=== PATIENT | male | born 1955 | race Caucasian/White ===

== ENCOUNTER 2018-09-03 15:54 | Outpatient (RCR) | payer BC, SELFPAY ==
--- NOTE | 2018-09-03 16:35 | HP.PTEVAL ---
Patient's Visit Information TRANG HENDRICKSON is a 63 year old M referred to Physical Therapy by Trent Montano MD with a diagnosis of Left Shoulder. Date of Evaluation: 09/03/18 Physical Therapist: Emperatriz Delong DPT - Visit Plan Frequency: 1x/Week Duration: 6 Weeks Plan: HEP - Subjective Findings: Left RTC Repair at [facility] about 3 years ago. 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 Went and saw MD who gave him a cortisone injection and told you start PT for HEP. The shoulder is back to normal with the Corisone injection a week ago. Has been painfree since the injection. Pain was located along the tip of the acromion. No Pain radiating down the arm. No N/T in the arm. Described the pain as dull and achy and tight. Fully I with ADL's. 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 Right hand dominate. PMHx: patellar tendon, TKR, left shoulder repair, HTN, cholesterol. Meds: see list. Sleep: not disturbed. Did an x-ray but no MRI. Will see MD in 6 weeks if needed. - Objective Posture: FH, RS, Increased kyphosis. Gait: no deviation. Palpation: not tender to palpation. ROM: WNL in all planes. Strength: Scap: fair minus, Shoulder: 4/5 throughout Elbow: 5/5, Wrist: WNL - Goals Goal 1:: Patient will be I with HEP Goal Time Frame: 4-6 Weeks Goal 2:: Patient will report 0/10 pain Goal Time Frame: 4-6 Weeks Goal 3:: Patient will maintain proper posture t/o tx session Goal Time Frame: 4-6 Weeks - Rehabilitation Potential Physical Therapy Diagnosis: Patient presents with hypomobility- he has decrease ROM, strength and scap s/s leading to poor posture. Rehabilitation Potential: Fair - Anticipated Interventions Patient/Client Instruction: Educate patient on: Benefits of Fitness Program Therapeutic Exercise to Include: Strength training, Endurance training, Body mechanics, Postural training For the Purpose of:: To improve muscle performance and motor function Thank you for the opportunity to evaluate your patient. For Medicare and Medicare HMO plans, please review the plan of care and approve it. It will need to be FAXED BACK to us at [phone] for Medicare purposes. For Medicare only, by signing this I certify the plan of care. Please let me know if there are questions or concerns regarding this plan of care. Physician Signature: Date:
--- NOTE | 2019-01-08 08:12 | HP.PTDCNRP_ITS ---
HP - Discharge Summary (1) - Patient Information TRANG HENDRICKSON was seen in my office for initial evaluation on 09/03/18. The following Plan of Care was established for this patient: Initial Frequency: 1x/Week Initial Duration: 6 Weeks - Anticipated Interventions Patient/Client Instruction: Educate patient on: Benefits of Fitness Program Therapeutic Exercise to Include: Strength training, Endurance training, Body m echanics, Postural training For the Purpose of:: To improve muscle performance and motor function This patient was last seen in our office . Pertinent comments regarding their Physical therapy will appear below: Patient has not attended physical therapy in over 8 weeks- appropriate to be discharged and return to MD as needed. At this point I will be discontinuing this patient from physical therapy. I would be happy to see this patient again in the future if found appropriate by the physician. Thank you! BEV BaxterT
== END 2018-09-03 19:00 | disposition home or self-care (01) ==
LOC: PT 15:54
PROVIDERS: Family Provider Family Medicine; PCP Family Medicine; Referring Provider Orthopaedic Surgery; Visit Provider Orthopaedic Surgery
DX: M75.52 Bursitis of left shoulder (principal)
CPT/HCPCS: 97110; 97161

== ENCOUNTER 2018-09-22 09:56 | Observation (INO) | payer BC, SELFPAY ==
[2018-09-22] VITALS (10 sets, daily range): BP systolic 122–151; BP diastolic 72–78; PULSE 61–79; RESP 16–19; TEMP 36.6–37.1; O2SAT 95–98; BMI 35.9; BMI 36.6
--- NOTE | 2018-09-22 10:29 | EKG12_ITS ---
Test Reason : CP Blood Pressure : / mmHG Vent. Rate : 071 BPM Atrial Rate : 071 BPM P-R Int : 166 ms QRS Dur : 114 ms QT Int : 392 ms P-R-T Axes : 032 023 027 degrees QTc Int : 425 ms Normal sinus rhythm Normal ECG Confirmed by RAYA HOANG ([id number]), publishing editor ABE CASTILLO ([id number]) on 09/25/2018 11:15:08 AM Referred By: DC Confirmed By:RAYA HOANG
--- NOTE | 2018-09-22 10:30 | RAD_ITS ---
STUDY: X-RAY CHEST REASON FOR EXAM: Male, 63 years old. Chest pain. TECHNIQUE: Single AP portable view of the chest. COMPARISON: None. FINDINGS: EKG electrodes are seen. Mild elevation of the right hemidiaphragm. The lungs are clear. There is no demonstrated pleural abnormality. There is borderline cardiomegaly. Normal mediastinum and hayden. Normal visualized pulmonary arteries. Normal visualized aortic arch and descending thoracic aorta. Normal visualized thoracic spine. Normal visualized ribs, clavicles, and shoulders. There is no demonstrated abnormality of the visualized soft tissue structures of the upper abdomen. RAD/Chest 1 View (Portable) IMPRESSION: Borderline cardiomegaly. Electronically Signed: Tiago Lemon, at 10:47 EDT , Service support ,
--- NOTE | 2018-09-22 10:31 | ED.DCSUM_ITS ---
- ER Visit Summary Date of Service: 09/22/18 Chief Complaint: Chest pain History of Present Illness: The patient is a 63 M with chest pain. Patient was having some pains last night and then they recurred this morning. They last for several minutes at a time. He has had pain over his left chest but also s ometimes over his right chest. It feels like a heartburn and is associated with some shortness of breath. He thought it might be indigestion. He had a stress test a few years ago which was unremarkable. No history of coronary disease, PE, or dissection. No fevers or cough. Patient quit smoking about 6 or 7 years ago. He takes aspirin daily. History of hypertension and hyperlipidemia. Physical Examination: Afebrile and vital signs unremarkable. Alert and oriented. No acute distress. Skin normal in color without pallor or diaphoresis. Heart regular rate and rhythm. Lungs clear. Abdomen soft. Remedies nontender with no edema. Pulses strong and equal. Test Results: EKG showed sinus rhythm at a rate of 71. No sign of ischemia or infarction pattern. Laboratory studies and chest x-ray pending. Emergency Department Course and Treatment: Patient placed on a monitor. IV access obtained. EKG as above. He was treated with aspirin while awaiting results. Workup was unremarkable. Patient does have some features concerning for angina. Heart score was 4. I spoke with the hospitalist to admit for further care. Treatment Plan: Above Disposition: Admission Impression: 1. Chest pain This note was generated with BringIt dictation software. It may contain incorrect words, spelling, and punctuation that were not noted in review of the chart prior to signing ED Disposition - Plan for ED Patient: Referrals: Carter Diane MD [Primary Care Provider] -
[2018-09-22] MEDS: Aspirin 81 MG TAB.CHEW 324 MG PO (10:38)
[2018-09-22 11:02] LABS: Absolute Lymphocyte Count 1.93 X10^3/ul (0.83-4.51); Basophil# 0.04 X10^3/uL; Basophil% 0.6 % (0-1); Eosinophil# 0.21 X10^3/uL; Eosinophils% 3.1 % (0-5); Hematocrit 44.5 % (40-54); Hemoglobin 14.6 g/dl (13.0-16.5); Lymphocyte # 1.93 X10^3/ul (4.0); Lymphocyte % 28.6 % (19-41); Mean Corp Hgb Conc 32.8 g/gl (32-36); Mean Corpuscular Volume 88.5 fL (80-94); Mean Platelet Vol. 9.9 fl (6.2-12.0); Monocyte# 0.52 X10^3/uL; Monocyte% 7.7 % (0-10); Neutrophil # 4.04 X10^3/uL (2.7-7.7); Neutrophil % 59.9 % (47-70); POSITIVE COUNT NO; POSITIVE DIFFERENTIAL NO; POSITIVE MORPHOLOGY NO; Platelet Count 238 K/mm3 (150-450); RBC Distribution Width CV 13.6 % (11.6-14.6); RBC Distribution Width SD 44.1 fl (35.1-43.9); Red Blood Count 5.03 M/mm3 (4.6-6.2); White Blood Count 6.8 K/mm3 (4.4-11.0)
[2018-09-22 11:12] LABS: Anion Gap 8 (5-15); BUN 21 mg/dL (7-18); BUN/Creat Ratio 17.2 RATIO (10-20); Calcium,Total 8.7 mg/dL (8.5-10.1); Chloride 107 mmol/L (98-107); Creatinine, Serum 1.22 mg/dL (0.70-1.30); EST Glomerular Filtration Rate 64 mL/min (>60); Est Glom Filt Rate - Afr Amer 77 mL/min (>60); Estimated Creatinine Clearance 68.91 ml/min; Glucose 117 mg/dL (74-106); Potassium 3.7 mmol/L (3.5-5.1); Sodium Level 143 mmol/L (136-145)
--- NOTE | 2018-09-22 11:59 | PCM.HP.STD ---
Problem List (1) Chest pain Status: Acute (2) Hypertension Status: Chronic (3) Erectile dysfunction Status: Acute (4) GERD (gastroesophageal reflux disease) Status: Acute History of Present Illness Date of Admission: 09/22/18 Chief Complaint: Chest pain The patient is a 63 year old M [facility] as below who presents with a 2-day history of consistent chest pain, he has been having intermittent chest pain over the last several weeks. Initially he thought that it was reflux, however it has persisted and he was concerned came into the hospital. No shortness of breath or radiation of this chest pain. He has not had any upper respiratory infections. The pain will go from the right side of his chest to the left side of his chest to the center of his chest. He states that he did have a stress test a few years ago which was normal. In the ER he had a normal troponin and normal labs, as well as a normal EKG however his heart risk was moderate he was admitted for chest pain rule out. Of note he states that he exercises 3 days a week doing cardio, where his heart rate will get up to 130-140 bpm on his Fitbit. Past Medical History Past Medical History (Chronic Problems): Chronic Problems Hypertension (Chronic) Allergies No Known Allergies Allergy (Verified 09/22/18 10:39) Home Medications: Ambulatory Orders Medication Instructions Recorded Amlodipine [Norvasc] 10 mg PO DAILY 09/22/18 Aspirin [Aspirin, Baby] 81 mg PO DAILY@0800 09/22/18 Multivitamin with Minerals 1 each PO DAILY 09/22/18 [Multiple Vitamin] [place]-3 Fatty Acids/Fish Oil 1 each PO DAILY 09/22/18 [[place] 3 Fish Oil Softgel] Pantoprazole Sodium [Protonix] 40 mg PO DAILY 09/22/18 Sildenafil Citrate [Sildenafil] 60 mg PO DAILY PRN 09/22/18 Valsartan/Hydrochlorothiazide 1 each PO DAILY 09/22/18 [Valsartan-Hctz 160-12.5 mg Tab] Surgical History: arthroscopy, knee, - - Shoulder surgery Lives: Spouse/ Significant Other Smoking Status: Former smoker Tobacco Use: Cigarettes Alcohol: None Drugs: None - *Family History Maternal History Items: Cancer Paternal History Items: Cancer Review of Systems Constitutional: Denies: Chills, Fever, Weight Change HEENT: Denies: Head Aches, Sinus Congestion, Sinus Drainage Cardiovascular: Reports: Chest Pain. Denies: Palpitations Respiratory: Denies: Cough, Shortness of breath at rest, Sputum production Gastrointestinal: Denies: Abdominal Pain, Nausea, Vomiting Genitourinary: Denies: Dysuria Musculoskeletal: Denies: Joint Pain, Joint Tenderness Skin: Denies: Rash, Wounds Neurological: Denies: Numbness, Tingling, Focal weakness Psychiatric: Denies: Anxiety, Depression, Homicidal Ideations, Suicidal Ideations Hematologic/ Lymphatic: Denies: Easy Bruising, Easy Bleeding VTE Information - Inpt Only VTE Present on Admission: No Patient Problems: Active and Suspected Problems Chest pain (Acute) Erectile dysfunction (Acute) GERD (gastroesophageal reflux disease) (Acute) - Physical Exam General: Alert, Oriented x3, Cooperative, No apparent distress HEENT: Atraumatic, PERRLA, EOMI, Normocephalic Oral: Moist Mucosa Neck: Supple, No JVD, Trachea Midline Lungs: Clear to auscultation, Normal air movement, No rhonchi, No wheeze, No rales Cardiovascular: Regular rate, Regular Rhythm, Normal S1, Normal S2, No murmurs Abdomen: Soft, Non Tender, Non-Distended, No Hepato-splenomegaly, Obese Extremities: No edema, Capillary Refill Less than 3 Seconds Skin: No rashes, No breakdown Neurological: Neuro grossly intact, Sensory exam intact to light touch and pain Psych/Mental Status: Normal Affect, Appropriate Vital Signs Temp Pulse Resp BP Pulse Ox 98.0 F 75 16 122/73 H 98 09/22/18 09:57 09/22/18 11:28 09/22/18 11:28 09/22/18 11:28 09/22/18 11:28 Oxygen Flow Rate (L/min) 2 Oxygen Delivery Method Nasal Cannula Weight: 265 lb Body Mass Index (BMI) 35.9 Laboratory Tests Past 24 Hrs 09/22/18 09/22/18 10:09 10:09 WBC 6.8 RBC 5.03 Hgb 14.6 Hct 44.5 MCV 88.5 MCH 29.0 MCHC 32.8 RDW 13.6 RDW Differential 44.1 H Plt Count 238 MPV 9.9 Immature Gran % (Auto) 0.100 Neut % (Auto) 59.9 Lymph % (Auto) 28.6 [place] % (Auto) 7.7 Eos % (Auto) 3.1 Baso % (Auto) 0.6 Absolute Neuts (auto) 4.0 Absolute Lymphs (auto) 1.93 Total Counted Not Reportable Sodium 143 Potassium 3.7 Chloride 107 Carbon Dioxide 28.0 Anion Gap 8 BUN 21 H Creatinine 1.22 Estim Creat Clear Calc 68.91 Est GFR (MDRD) Af Amer 77 Est GFR (MDRD) Non-Af 64 BUN/Creatinine Ratio 17.2 Glucose 117 H Calcium 8.7 Troponin I < 0.015 Assessment/Plan All Active Problems Chest pain (Acute) Erectile dysfunction (Acute) GERD (gastroesophageal reflux disease) (Acute) 1. Chest pain/HTN -Currently presenting with a moderate heart score -We will trend troponins -EKG normal -Received aspirin in the ER, will continue with 81 daily -Exercise stress in the morning -We will continue with his Norvasc, and his valsartan/hydrochlorothiazide 2. Erectile dysfunction -Will hold Cialis while in the hospital 3. GERD -Stable -Continue with PPI DVT: Lovenox Code Visit OBSV E&M: 53636 Initial observation care L2
--- NOTE | 2018-09-22 12:46 | EKG12_ITS ---
Test Reason : AM Blood Pressure : / mmHG Vent. Rate : 063 BPM Atrial Rate : 063 BPM P-R Int : 178 ms QRS Dur : 110 ms QT Int : 426 ms P-R-T Axes : 039 037 044 degrees QTc Int : 435 ms Normal sinus rhythm Incomplete right bundle branch block Borderline ECG When compared with ECG of 22-SEP-2018 09:59, MANUAL COMPARISON REQUIRED, DATA IS UNCONFIRMED Confirmed by KENAN PACHECO, BEAU ([id number]), communications editor ABE CASTILLO ([id number]) on 09/28/2018 1:20:03 PM Referred By: FAUSTINO Confirmed By:BEAU GRAYSON MD
[2018-09-22] MEDS: Zolpidem Tartrate 5 MG Tablet PO (23:00)
[2018-09-23 03:08] VITALS: PULSE 58
[2018-09-23 04:08] VITALS: BP 124/64; PULSE 63; RESP 18; TEMP 36.7; O2SAT 95
[2018-09-23 05:35] LABS: Absolute Lymphocyte Count 1.95 X10^3/ul (0.83-4.51); Absolute Neutrophil Count 2.9 X10^3/uL (2.0-7.7); Basophil# 0.03 X10^3/uL; Basophil% 0.5 % (0-1); Eosinophil# 0.22 X10^3/uL; Eosinophils% 3.7 % (0-5); Hematocrit 42.7 % (40-54); Hemoglobin 14.1 g/dl (13.0-16.5); Lymphocyte # 1.95 X10^3/ul (4.0); Lymphocyte % 33.2 % (19-41); Mean Corpuscular Hgb 29.1 pg (27.0-32.0); Mean Corpuscular Volume 88.2 fL (80-94); Mean Platelet Vol. 9.9 fl (6.2-12.0); Monocyte# 0.74 X10^3/uL; Monocyte% 12.6 % (0-10); Neutrophil # 2.93 X10^3/uL (2.7-7.7); Neutrophil % 49.8 % (47-70); Platelet Count 216 K/mm3 (150-450); RBC Distribution Width CV 13.5 % (11.6-14.6); RBC Distribution Width SD 43.4 fl (35.1-43.9); Red Blood Count 4.84 M/mm3 (4.6-6.2); White Blood Count 5.9 K/mm3 (4.4-11.0)
[2018-09-23 05:37] LABS: POSITIVE COUNT NO; POSITIVE DIFFERENTIAL NO; POSITIVE MORPHOLOGY NO
[2018-09-23 05:40] LABS: International Normalized Ratio 1.1; Prothrombin Time (Protime)PT. 14.2 SECONDS (11.7-14.9)
[2018-09-23 05:41] LABS: Partial Thromboplast Time 29.7 Seconds (24.1-36.2)
[2018-09-23 05:52] LABS: Anion Gap 8 (5-15); BUN 19 mg/dL (7-18); BUN/Creat Ratio 16.7 RATIO (10-20); Calcium,Total 8.6 mg/dL (8.5-10.1); Chloride 107 mmol/L (98-107); Cholesterol 157 mg/dL (200); Creatinine, Serum 1.14 mg/dL (0.70-1.30); EST Glomerular Filtration Rate 69 mL/min (>60); Est Glom Filt Rate - Afr Amer 84 mL/min (>60); Estimated Creatinine Clearance 73.74 ml/min; Glucose 103 mg/dL (74-106); High Density Lipoprotein 42 mg/dL; Potassium 3.7 mmol/L (3.5-5.1); Sodium Level 143 mmol/L (136-145); Triglycerides 169 mg/dL; Very Low Density Lipoprotein 34 mg/dL (5-40)
--- NOTE | 2018-09-23 05:55 | EKG12_ITS ---
Test Reason : CP REPEAT Blood Pressure : / mmHG Vent. Rate : 060 BPM Atrial Rate : 060 BPM P-R Int : 182 ms QRS Dur : 118 ms QT Int : 434 ms P-R-T Axes : 030 030 035 degrees QTc Int : 434 ms Normal sinus rhythm Non-specific intra-ventricular conduction delay Borderline ECG No previous ECGs available Confirmed by KENAN PACHECO, BEAU ([id number]), dictionary editor ABE CASTILLO ([id number]) on 09/28/2018 1:23:03 PM Referred By: LISSETTE Confirmed By:BEAU GRAYSON MD
[2018-09-23 06:10] VITALS: BP 152/71; PULSE 66; RESP 18; TEMP 36.6; O2SAT 98
[2018-09-23] MEDS: Losartan Potassium 50 MG Tablet PO (06:10)
[2018-09-23] MEDS: Pantoprazole Sodium 40 MG Tablet PO (06:10)
[2018-09-23] MEDS: Aspirin 81 MG TAB.CHEW PO (06:10)
[2018-09-23 08:19] VITALS: PULSE 92
--- NOTE | 2018-09-23 09:09 | STRESSREP_ITS ---
Stress Test Report Exercise myocardial perfusion stress test. 63-year-old male with a history of chest pain. Stress protocol: Resting EKG demonstrates normal sinus rhythm with a rate of 62 bpm normal intervals are noted resting blood pressure 130/84 mmHg. The patient exercised according to regular Jakob protocol for total duration of 7 minutes and 15 sec onds. The maximum heart rate was 169 bpm which was 106% of maximum predicted heart rate the maximum workload was 8.9 metabolic equivalents. The patient maintained sinus rhythm throughout the recording. At rest there were no ST or T wave changes noted suggest ischemia peak exercise upsloping ST changes were noted with no meet the criteria for ischemia. The resting blood pressure 140/82 mmHg with a peak blood pressure 198/92 mmHg. Rate pressure product was 29,800. Myocardial perfusion protocol. 14.6 mCi of technetium 99m sestamibi was injected at rest. The patient exercised according to regular Jakob protocol for 7 minutes and 15 seconds at peak exercise 44.7 mCi of technetium 99m sestamibi was injected stress images were obtained stress and rest images were reconstructed and compared in the short axis vertical long horizontal long axis. Gated images were also obtained per Perfusion SPECT analysis: Review of the stress images demonstrate normal uptake of tracer noted in all areas of myocardium. The resting images similarly demonstrate normal uptake of tracer noted in all areas of myocardium. No evidence of reversibility are noted suggest ischemia. Gated SPECT analysis: The gated ejection fraction is noted to be 75%. Conclusion: Normal exercise myocardial perfusion stress test at a high workload. Preserved ejection fraction.
--- NOTE | 2018-09-23 09:39 | DCINST_ITS ---
- Discharge Diagnoses Current Active Problems: Current Active and Chronic Problems Chest pain (Acute) Hypertension (Chronic) Erectile dysfunction (Acute) GERD (gastroesophageal reflux disease) (Acute) You will use the following diet at home:: Cardiac Your food should be the consistency of: Regular Your liquids should be the consistency of: Regular/Thin Discharge Activity: Return to Normal Activity Call your doctor if you observe: Fever of 101 or Higher, Shortness of breath, Dizziness, Fainting spells, Swelling in the ankles, Chest pain, Increased palpitations (irregular heartbeat) Allergies/Adverse Reactions: Allergies No Known Allergies Allergy (Verified 09/22/18 10:39) Medications to take at Discharge Amlodipine [Norvasc] 10 mg PO DAILY 09/22/18 Aspirin [Aspirin, Baby] 81 mg PO DAILY@0800 09/22/18 Multivitamin with Minerals [Multiple Vitamin] 1 each PO DAILY 09/22/18 [place]-3 Fatty Acids/Fish Oil [[place] 3 Fish Oil Softgel] 1 each PO DAILY 09/22/18 Pantoprazole Sodium [Protonix] 40 mg PO DAILY 09/22/18 Sildenafil Citrate [Sildenafil] 60 mg PO DAILY PRN 09/22/18 Valsartan/Hydrochlorothiazide [Valsartan-Hctz 160-12.5 mg Tab] 1 each PO DAILY 09/22/18 Primary Care Physician: Carter Diane MD [Primary Care Provider] - Please follow up with your Primary Care Physician in: 3-5 days Test Results: Test results from this visit will be discussed in further detail at your follow- up appointment, if applicable.
[2018-09-23] MEDS: amLODIPine 10 MG Tablet PO (10:18)
--- NOTE | 2018-09-23 11:29 | PCM.DC.SUM ---
Discharge Date and Diagnosis Date of Admission: 09/22/18 Date of Discharge: 09/23/18 - Secondary Discharge Diagnosis Chronic Problems Hypertension (Chronic) Hospital Course and Treatment Imaging Results: 09/23/18 05:55 Nuclear Stress Test - Treadmil [NM] AM (NON MEDS) Consults: Cardiology Procedures: Nuclear stress test - Gated SPECT analysis: The gated ejection fraction is noted to be 75%. Conclusion: Normal exercise myocardial perfusion stress test at a high workload. Preserved ejection fraction. Summary of Care Provided: Per HPI: The patient is a 63 year old M H as below who presents with a 2-day history of consistent chest pain, he has been having intermittent chest pain over the last several weeks. Initially he thought that it was reflux, however it has persisted and he was concerned came into the hospital. No shortness of breath or radiation of this chest pain. He has not had any upper respiratory infections. The pain will go from the right side of his chest to the left side of his chest to the center of his chest. He states that he did have a stress test a few years ago which was normal. In the ER he had a normal troponin and normal labs, as well as a normal EKG however his heart risk was moderate he was admitted for chest pain rule out. Of note he states that he exercises 3 days a week doing cardio, where his heart rate will get up to 130-140 bpm on his Fitbit. Hospital Course: 1. Chest pain/RJV-52-hgrr-old male presenting with chest pain intermittently over the last several weeks, then it became consistent over the last 2 days. Troponins were negative and he had an exercise stress test this morning which was normal. He will have further cardiac testing possibly a calcium score as well as a perfusion study as an outpatient. I discussed with him about weight loss and dietary modifications to help achieve weight loss. He does exercise 3-4 days a week which I recommend he continue. 2. His other medical diagnoses were evaluated and his home medications were continued where appropriate Objective: General: Alert, Oriented x3, Cooperative, No apparent distress HEENT: Atraumatic, PERRLA, EOMI, Normocephalic Oral: Moist Mucosa Neck: Supple, No JVD, Trachea Midline Lungs: Clear to auscultation, Normal air movement, No rhonchi, No wheeze, No rales Cardiovascular: Regular rate, Regular Rhythm, Normal S1, Normal S2, No murmurs Abdomen: Soft, Non Tender, Non-Distended, No Hepato-splenomegaly, Obese Extremities: No edema, Capillary Refill Less than 3 Seconds Skin: No rashes, No breakdown Neurological: Neuro grossly intact, Sensory exam intact to light touch and pain Psych/Mental Status: Normal Affect, Appropriate - Physical Exam Vital Signs Temp Pulse Resp BP Pulse Ox 97.9 F 92 18 152/71 H 98 09/23/18 06:10 09/23/18 08:19 09/23/18 06:10 09/23/18 06:10 09/23/18 06:10 Oxygen Flow Rate (L/min) 2 Oxygen Delivery Method Room Air Weight: 270 lb 4.587 oz Body Mass Index (BMI) 36.6 Intake and Output for Last 24 Hours 09/21/18 09/22/18 09/23/18 23:59 23:59 23:59 Intake Total 480 / 480 240 / 240 Balance 480 / 480 240 / 240 Laboratory Tests Past 24 Hrs 09/22/18 09/22/18 09/23/18 13:00 16:34 04:44 WBC RBC Hgb Hct MCV MCH MCHC RDW RDW Differential Plt Count MPV Immature Gran % (Auto) Neut % (Auto) Lymph % (Auto) [place] % (Auto) Eos % (Auto) Baso % (Auto) Absolute Neuts (auto) Absolute Lymphs (auto) Total Counted PT INR APTT Sodium 143 Potassium 3.7 Chloride 107 Carbon Dioxide 28.0 Anion Gap 8 BUN 19 H Creatinine 1.14 Estim Creat Clear Calc 73.74 Est GFR (MDRD) Af Amer 84 Est GFR (MDRD) Non-Af 69 BUN/Creatinine Ratio 16.7 Glucose 103 Calcium 8.6 Troponin I < 0.015 < 0.015 Triglycerides 169 Cholesterol 157 LDL Cholesterol 81 VLDL Cholesterol 34 HDL Cholesterol 42 09/23/18 09/23/18 04:44 04:44 WBC 5.9 RBC 4.84 Hgb 14.1 Hct 42.7 MCV 88.2 MCH 29.1 MCHC 33.0 RDW 13.5 RDW Differential 43.4 Plt Count 216 MPV 9.9 Immature Gran % (Auto) 0.200 Neut % (Auto) 49.8 Lymph % (Auto) 33.2 [place] % (Auto) 12.6 H Eos % (Auto) 3.7 Baso % (Auto) 0.5 Absolute Neuts (auto) 2.9 Absolute Lymphs (auto) 1.95 Total Counted Not Reportable PT 14.2 INR 1.1 APTT 29.7 Sodium Potassium Chloride Carbon Dioxide Anion Gap BUN Creatinine Estim Creat Clear Calc Est GFR (MDRD) Af Amer Est GFR (MDRD) Non-Af BUN/Creatinine Ratio Glucose Calcium Troponin I Triglycerides Cholesterol LDL Cholesterol VLDL Cholesterol HDL Cholesterol Discharge Activity: Return to Normal Activity Call your doctor if you observe: Fever of 101 or Higher, Shortness of breath, Dizziness, Fainting spells, Swelling in the ankles, Chest pain, Increased palpitations (irregular heartbeat) Home Medications: Medications to take at Discharge Amlodipine [Norvasc] 10 mg PO DAILY 09/22/18 Aspirin [Aspirin, Baby] 81 mg PO DAILY@0800 09/22/18 Multivitamin with Minerals [Multiple Vitamin] 1 each PO DAILY 09/22/18 [place]-3 Fatty Acids/Fish Oil [[place] 3 Fish Oil Softgel] 1 each PO DAILY 09/22/18 Pantoprazole Sodium [Protonix] 40 mg PO DAILY 09/22/18 Sildenafil Citrate [Sildenafil] 60 mg PO DAILY PRN 09/22/18 Valsartan/Hydrochlorothiazide [Valsartan-Hctz 160-12.5 mg Tab] 1 each PO DAILY 09/22/18 Primary Care Physician: Carter Diane MD [Primary Care Provider] - Please follow up with your Primary Care Physician in: 3-5 days Disposition: Home Minutes spent on discharge:: 35 Patient Condition:: Good Medical Necessity - Tobacco Use Smoking Status: Former smoker Tobacco Use: Cigarettes Meaningful Use Info Meaningful Use Diagnoses (Choose all that apply): None applicable Code Visit OBSV E&M: 74017 Observation care discharge
--- NOTE | 2018-09-23 11:32 | DS.PCM_ITS ---
Discharge Date and Diagnosis Date of Admission: 09/22/18 Date of Discharge: 09/23/18 - Secondary Discharge Diagnosis Chronic Problems Hypertension (Chronic) Hospital Course and Treatment Imaging Results: 09/23/18 05:55 Nuclear Stress Test - Treadmil [NM] AM (NON MEDS) Consults: Cardiology Procedures: Nuclear stress test - Gated SPECT analysis: The gated ejection fraction is noted to be 75%. Conclusion: Normal exercise myocardial perfusion stress test at a high workload. Preserved ejection fraction. Summary of Care Provided: Per HPI: The patient is a 63 year old M H as below who presents with a 2-day history of consistent chest pain, he has been having intermittent chest pain over the last several weeks. Initially he thought that it was reflux, however it has persisted and he was concerned came into the hospital. No shortness of breath or radiation of this chest pain. He has not had any upper respiratory infections. The pain will go from the right side of his chest to the left side of his chest to the center of his chest. He states that he did have a stress test a few years ago which was normal. In the ER he had a normal troponin and normal labs, as well as a normal EKG however his heart risk was moderate he was admitted for chest pain rule out. Of note he states that he exercises 3 days a week doing cardio, where his heart rate will get up to 130-140 bpm on his Fitbit. Hospital Course: 1. Chest pain/HAA-89-yuxu-old male presenting with chest pain intermittently over the last several weeks, then it became consistent over the last 2 days. Troponins were negative and he had an exercise stress test this morning which was normal. He will have further cardiac testing possibly a calcium score as well as a perfusion study as an outpatient. I discussed with him about weight loss and dietary modifications to help achieve weight loss. He does exercise 3- 4 days a week which I recommend he continue. 2. His other medical diagnoses were evaluated and his home medications were continued where appropriate Objective: General: Alert, Oriented x3, Cooperative, No apparent distress HEENT: Atraumatic, PERRLA, EOMI, Normocephalic Oral: Moist Mucosa Neck: Supple, No JVD, Trachea Midline Lungs: Clear to auscultation, Normal air movement, No rhonchi, No wheeze, No rales Cardiovascular: Regular rate, Regular Rhythm, Normal S1, Normal S2, No murmurs Abdomen: Soft, Non Tender, Non-Distended, No Hepato-splenomegaly, Obese Extremities: No edema, Capillary Refill Less than 3 Seconds Skin: No rashes, No breakdown Neurological: Neuro grossly intact, Sensory exam intact to light touch and pain Psych/Mental Status: Normal Affect, Appropriate - Physical Exam Vital Signs Temp Pulse Resp BP Pulse Ox 97.9 F 92 18 152/71 H 98 09/23/18 06:10 09/23/18 08:19 09/23/18 06:10 09/23/18 06:10 09/23/18 06:10 Oxygen Flow Rate (L/min) 2 Oxygen Delivery Method Room Air Weight: 270 lb 4.587 oz Body Mass Index (BMI) 36.6 Intake and Output for Last 24 Hours 09/21/18 09/22/18 09/23/18 23:59 23:59 23:59 Intake Total 480 / 480 240 / 240 Balance 480 / 480 240 / 240 Laboratory Tests Past 24 Hrs 09/22/18 09/22/18 09/23/18 13:00 16:34 04:44 WBC RBC Hgb Hct MCV MCH MCHC RDW RDW Differential Plt Count MPV Immature Gran % (Auto) Neut % (Auto) Lymph % (Auto) [place] % (Auto) Eos % (Auto) Baso % (Auto) Absolute Neuts (auto) Absolute Lymphs (auto) Total Counted PT INR APTT Sodium 143 Potassium 3.7 Chloride 107 Carbon Dioxide 28.0 Anion Gap 8 BUN 19 H Creatinine 1.14 Estim Creat Clear Calc 73.74 Est GFR (MDRD) Af Amer 84 Est GFR (MDRD) Non-Af 69 BUN/Creatinine Ratio 16.7 Glucose 103 Calcium 8.6 Troponin I < 0.015 < 0.015 Triglycerides 169 Cholesterol 157 LDL Cholesterol 81 VLDL Cholesterol 34 HDL Cholesterol 42 09/23/18 09/23/18 04:44 04:44 WBC 5.9 RBC 4.84 Hgb 14.1 Hct 42.7 MCV 88.2 MCH 29.1 MCHC 33.0 RDW 13.5 RDW Differential 43.4 Plt Count 216 MPV 9.9 Immature Gran % (Auto) 0.200 Neut % (Auto) 49.8 Lymph % (Auto) 33.2 [place] % (Auto) 12.6 H Eos % (Auto) 3.7 Baso % (Auto) 0.5 Absolute Neuts (auto) 2.9 Absolute Lymphs (auto) 1.95 Total Counted Not Reportable PT 14.2 INR 1.1 APTT 29.7 Sodium Potassium Chloride Carbon Dioxide Anion Gap BUN Creatinine Estim Creat Clear Calc Est GFR (MDRD) Af Amer Est GFR (MDRD) Non-Af BUN/Creatinine Ratio Glucose Calcium Troponin I Triglycerides Cholesterol LDL Cholesterol VLDL Cholesterol HDL Cholesterol Discharge Activity: Return to Normal Activity Call your doctor if you observe: Fever of 101 or Higher, Shortness of breath, Dizziness, Fainting spells, Swelling in the ankles, Chest pain, Increased palpitations (irregular heartbeat) Home Medications: Medications to take at Discharge Amlodipine [Norvasc] 10 mg PO DAILY 09/22/18 Aspirin [Aspirin, Baby] 81 mg PO DAILY@0800 09/22/18 Multivitamin with Minerals [Multiple Vitamin] 1 each PO DAILY 09/22/18 Colbert-3 Fatty Acids/Fish Oil [Colbert 3 Fish Oil Softgel] 1 each PO DAILY 09/22/18 Pantoprazole Sodium [Protonix] 40 mg PO DAILY 09/22/18 Sildenafil Citrate [Sildenafil] 60 mg PO DAILY PRN 09/22/18 Valsartan/Hydrochlorothiazide [Valsartan-Hctz 160-12.5 mg Tab] 1 each PO DAILY 09/22/18 Primary Care Physician: Carter Diane MD [Primary Care Provider] - Please follow up with your Primary Care Physician in: 3-5 days Disposition: Home Minutes spent on discharge:: 35 Patient Condition:: Good Medical Necessity - Tobacco Use Smoking Status: Former smoker Tobacco Use: Cigarettes Meaningful Use Info Meaningful Use Diagnoses (Choose all that apply): None applicable Code Visit OBSV E&M: 40094 Observation care discharge
== END 2018-09-23 09:38 | disposition home or self-care (01) ==
LOC: ED 10:34 → PCU 12:14
PROVIDERS: Admitting Provider Family Medicine; Emergency Provider Emergency Medicine; Family Provider Family Medicine; PCP Family Medicine; Visit Provider Family Medicine
DX: R07.89 Other chest pain (principal); R06.02 Shortness of breath; I10 Essential (primary) hypertension; E78.5 Hyperlipidemia, unspecified; K21.9 Gastro-esophageal reflux disease without esophagitis; Z79.899 Other long term (current) drug therapy; Z79.82 Long term (current) use of aspirin; Z87.891 Personal history of nicotine dependence
CPT/HCPCS: 36415; 71045; 78452; 80048; 80061; 84484; 85025; 85610; 85730; 93005; 93017; 99218; 99285; A9500; A4216; G0378

== ENCOUNTER → 2018-10-14 08:05 | Outpatient (CLI) | payer BC, SELFPAY ==
[2018-09-22 12:52] VITALS: BMI 36.6
--- NOTE | 2018-10-14 08:10 | RAD_ITS ---
CLINICAL HISTORY: Male, 63 years old. Chest pain, EKG and stress test normal. Gassy and burping times several months. PROCEDURE: Fluoroscopically guided, air-contrast upper GI. FLUOROSCOPY TIME (if supplied): (2:06) minutes/seconds TECHNIQUE: The patient easily and readily swallowed effervescent crystals and various density barium contrast. Multiple digital spot images were obtained during the course of the real-time exam. FINDINGS: Esophageal motility appears normal. There is no esophageal stricture, web or diverticulum. The esophageal mucosal pattern appears unremarkable. Moderate reflux was observed during the course of the real-time exam to the level of the distal third of the esophagus with delayed clearing. The stomach demonstrates normal morphology, position and rotation. There is no intrinsic or extrinsic gastric mass or mass effect. The gastric mucosal pattern appears unremarkable. Contrast readily exited the gastric outlet into unremarkable appearing duodenal bulb and proximal small bowel. RAD/Upper GI Series Only IMPRESSION: Moderate free reflux to the level of the distal third of the esophagus with moderately delayed clearing. Otherwise, fluoroscopically normal-appearing esophagus, stomach, duodenal bulb and duodenal C-sweep. Electronically Signed: Raymond Crawford MD at 10:13 EDT , Service support ,
== END ==
PROVIDERS: Family Provider Family Medicine; PCP Family Medicine; Referring Provider Family Medicine; Visit Provider Family Medicine
DX: R10.13 Epigastric pain (principal); R10.11 Right upper quadrant pain
CPT/HCPCS: 74246

== ENCOUNTER 2019-07-08 16:30 | Outpatient (RCR) | payer BC, SELFPAY ==
[2018-09-22 12:52] VITALS: BMI 36.6
--- NOTE | 2019-06-08 15:24 | HP.PTEVAL ---
Patient's Visit Information TRANG HENDRICKSON is a 63 year old M referred to Physical Therapy by YAN GARCIA with a diagnosis of R knee revision. Date of Evaluation: 06/08/19 Physical Therapist: Immanuel Garcia, PT, ATC - Visit Plan Frequency: 2-3x /Week Duration: 4-6 Weeks Plan: R knee PROM/MOBS, stretching, strengthening, core strengthening, balance and proprio, bike, and HEP - Subjective Findings: DOS: 05/07/19. Pt reports he had a R knee revision performed at that time. Pt reports he had a R TKA performed 9 years ago. Pt reports he was having PT for patellar tendonitis when he suddenly felt his tendon tear. Pt reports scar tissue from that injury lead to him having to get this revision performed. 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 Pt reports sleep difficulty at this time. Pt reports he is back to work at this time but only half days. Occasional numbness in R LE if he sits too long. Pt is limited from a lot of activities, but mostly due to L knee pain. 2/10 pain at rest, 4/10 at worst - Pain R knee revision Pain Intensity (Out of 10): 2 Pain Intensity Range: 4 - Objective Neuro: B LE sensation WNL to light touch. B achilles reflex= 2/3. Girth at joint line: L knee 40 cm, R knee 43 cm. Observation: Incision healed. Moderate swelling noted. 2+ pitting edema in LE. No obvious signs of infection. ROM: R knee 0-2-120, L knee 0-13-105 degrees. MMT: B LE's 4/5 throughout - Goals Goal 1:: Decrease R knee pain x 50% to aid with sleep Goal Time Frame: 4-6 Weeks Goal 2:: Increase R knee ROM x 20 degrees to aid with stair negotiation Goal 3:: Increase R knee strength x 1 grade to aid with RTW Goal Time Frame: 4-6 Weeks Goal 4:: I with HEP Goal Time Frame: 4-6 Weeks - Rehabilitation Potential Physical Therapy Diagnosis: R knee pain, weakness, and limited ROM secondary to R knee revision Rehabilitation Potential: Good - Anticipated Interventions Patient/Client Instruction: Educate patient on: Condition, Plan of Care For the Purpose of:: To improve self management Therapeutic Exercise to Include: Strength training, Endurance training, Balance training, Flexibilty training, Passive ROM, Active ROM, Dynamic Lumbar Stabilization For the Purpose of:: To decrease pain, To increase ROM, To improve muscle performance and motor function Cryotherapy (ice pack, ice massage): Yes For the Purpose of:: To decrease pain Thank you for the opportunity to evaluate your patient. For Medicare and Medicare HMO plans, please review the plan of care and approve it. It will need to be FAXED BACK to us at [phone] for Medicare purposes. For Medicare only, by signing this I certify the plan of care. Please let me know if there are questions or concerns regarding this plan of care. Physician Signature: Date:
--- NOTE | 2019-07-08 17:01 | HP.PTDCSUM ---
HP - PT D/C Summary It has been my pleasure to treat TRANG HENDRICKSON under orders from YAN GARCIA, for the diagnosis of R knee revision for a total of 10 visit(s). Discharge Date: Please see the following information for a summary of their discharge status. - Subjective Subjective: Pt reports mild pain this date - Pain R knee revision Pain Intensity (Out of 10): 1 - Overall Improvement % Improvement: 70 - Objective Objective/Function: R knee ROM: 0-125 degrees. R knee MMT: 5/ throughout. Pain 07/02. I with HEP. Rx goals achieved - Goals Goal 1:: Decrease R knee pain x 50% to aid with sleep Goal 2:: Increase R knee ROM x 20 degrees to aid with stair negotiation Goal 3:: Increase R knee strength x 1 grade to aid with RTW Goal 4:: I with HEP - Plan Plan: Discharge - D/C Information If there are questions or concerns regarding this patient's physical therapy, please feel free to call me at [phone]. Thank you for the referral of this patient. Sincerely, Immanuel Garcia, PT, ATC
== END 2019-07-08 19:00 | disposition home or self-care (01) ==
LOC: PT 16:30
PROVIDERS: Family Provider Family Medicine; PCP Family Medicine
DX: M17.12 Unilateral primary osteoarthritis, left knee (principal); Z96.651 Presence of right artificial knee joint
CPT/HCPCS: 97110; 97161; 97164

== ENCOUNTER 2019-09-28 16:00 | Outpatient (RCR) | payer BC, SELFPAY ==
[2018-09-22 12:52] VITALS: BMI 36.6
--- NOTE | 2019-08-04 12:33 | HP.PTEVAL_ITS ---
Patient's Visit Information TRANG HENDRICKSON is a 64 year old M referred to Physical Therapy by YAN GARCIA with a diagnosis of L TKA. Date of Evaluation: 08/04/19 Physical Therapist: Immanuel Garcia, PT, ATC - Visit Plan Frequency: 2-3x /Week Duration: 4-6 Weeks Plan: L knee PROM/mobs, B LE strengthening, balance and proprio, core strengthening, nustep, and HEP - Subjective Findings: DOS: 07/14/18. Pt had a L TKA performed. Pt reports he had a chronic Hx of L knee pain prior to the surgery. Pt reports he is glad to have had the surgery at this time. Pt reports he had inhome PT for 3 weeks and is doing really well at this time. Sleep difficulty if he is not taking pain meds. Minor numbness on lateral L knee, no other LE tingling or numbness. 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 Pt has stairs at home and notes he can negotiate them one step at a time. Notes R TKA 9 years ago and in April of last yeat, had to have a revision performed which is still weak at this time. 2/10 pain at rest, 6/10 pain at worst - Pain L TKA Pain Intensity (Out of 10): 2 Pain Intensity Range: 6 - Objective Neuro: B LE sensation is WNL to light touch. B achilles reflex= 2/3. ROM: R knee 0-8-120, L knee 0-15-108. Girth at joint line: B knees 42 cm. MMT: R knee is 4+/5 throughout. L knee 4-/5 and painful. Observation: ncision mostly healed. No signs of infection. - Goals Goal 1:: Increase L knee ROM x 20 degrees to aid with restoring a more normalized gait pattern Goal Time Frame: 4-6 Weeks Goal 2:: Increase L knee strenght x 1 grade to aid with stair negotiation Goal Time Frame: 4-6 Weeks Goal 3:: Decrease L pain x 50% to aid with sleep Goal Time Frame: 4-6 Weeks Goal 4:: I with HEP Goal Time Frame: 4-6 Weeks - Rehabilitation Potential Physical Therapy Diagnosis: L knee pain, weakness, and limited ROM secondary to L TKA Rehabilitation Potential: Good - Anticipated Interventions Patient/Client Instruction: Educate patient on: Condition, Plan of Care For the Purpose of:: To improve self management Therapeutic Exercise to Include: Strength training, Endurance training, Balance training, Flexibilty training, Gait and locomotor training, Passive ROM, Active ROM, Dynamic Lumbar Stabilization For the Purpose of:: To decrease pain, To increase ROM, To improve muscle performance and motor function Cryotherapy (ice pack, ice massage): Yes For the Purpose of:: To decrease pain Thank you for the opportunity to evaluate your patient. For Medicare and Medicare HMO plans, please review the plan of care and approve it. It will need to be FAXED BACK to us at [phone] for Medicare purposes. For Medicare only, by signing this I certify the plan of care. Please let me know if there are questions or concerns regarding this plan of care. Physician Signature: __Date:
--- NOTE | 2019-09-28 17:04 | HP.PTDCSUM ---
It has been my pleasure to treat TRANG HENDRICKSON referred by YAN GARCIA, with the diagnosis of L TKA for a total of 19 visit(s). Discharge Date: Please see the following information for a summary of their discharge status. Subjective: I am sore this date L TKA Pain Intensity (Out of 10): 1 % Improvement: 85 Objective/Function: L knee pain 07/02 this . L knee MMT: flex= 4/5, ext= 5/5. L knee ROM 0-125 degrees. I with HEP Goal 1:: Increase L knee ROM x 20 degrees to aid with restoring a more normalized gait pattern Goal Progress: Goal Met Goal 2:: Increase L knee strenght x 1 grade to aid with stair negotiation Goal Progress: Goal Met Goal 3:: Decrease L pain x 50% to aid with sleep Goal Progress: Goal Met Goal 4:: I with HEP Goal Progress: Goal Met Plan: Discharge If there are questions or concerns regarding this patient's physical therapy, please feel free to call me at [phone]. Thank you for the referral of this patient. Sincerely, Immanuel Garcia, PT, ATC
== END 2019-09-28 19:00 | disposition home or self-care (01) ==
LOC: PT 16:00
PROVIDERS: PCP Family Medicine
DX: M25.562 Pain in left knee (principal); G89.18 Other acute postprocedural pain; Z96.653 Presence of artificial knee joint, bilateral
CPT/HCPCS: 97014; 97110; 97140; 97161; 97164; G0283

== ENCOUNTER → 2020-09-18 06:32 | Outpatient (CLI) | payer OTHER, SELFPAY ==
[2018-09-22 12:52] VITALS: BMI 36.6
--- NOTE | 2020-09-18 06:39 | MRI_ITS ---
STUDY: MRI ABDOMEN WITH AND WITHOUT CONTRAST REASON FOR EXAM: Male, 65 years old. FAMILY HX PANCREATIC CA TECHNIQUE: Standardized fat and water weighted pulse sequences were obtained in all 3 orthogonal planes post contrast administration. 24ML IV DOTAREM was administered for the contrast portion of the examination. COMPARISON: None. FINDINGS: The visualized lung bases are unremarkable. The visualized portions of the heart are within normal limits. Normal liver. Normal gallbladder and extrahepatic biliary system. Normal spleen. Normal pancreas. Normal bilateral adrenal glands. Normal right kidney. Normal left kidney. Normal visualized stomach. Normal small intestine. Normal colon. The appendix is visualized and appears normal. Normal abdominal aorta. Normal inferior vena cava. Normal retroperitoneum. Normal abdominal wall. Normal osseous structures. MRI/MRI Abd WITH and W/O Contrast IMPRESSION: Normal unenhanced and enhanced MRI of the abdomen. Electronically Signed: Kodi Nguyen DO at 4:28 EDT Tel , Service support ,
[2020-09-18 06:55] LABS: CREATININE FINGERSTICK 1.4 mg/dL (0.70-1.30)
== END ==
PROVIDERS: PCP Family Medicine; Referring Provider Family Medicine; Visit Provider Family Medicine
DX: Z80.0 Family history of malignant neoplasm of digestive organs (principal)
CPT/HCPCS: 74183; A9575; A4216

== ENCOUNTER 2021-01-17 15:30 | Outpatient (RCR) | payer OTHER, SELFPAY ==
[2018-09-22 12:52] VITALS: BMI 36.6
--- NOTE | 2020-10-31 17:15 | HP.PTEVAL ---
Patient's Visit Information TRANG HENDRICKSON is a 65 year old M referred to Physical Therapy by YAN GARCIA with a diagnosis of DDD, s/p TKA. Date of Evaluation: 10/31/20 Physical Therapist: Khanh Mcwilliams, BEVT, OCS, CSCS - Visit Plan Frequency: 2x /Week Duration: 4-6 Weeks Plan: 2x/week for 4 weeks to start in water for instructiona dn progression to I as member with HS and quad strentches, LB ROM, core adn quad and LE and postural strength. May need to progress out to gym for instruct in quad strength to knees to add to gym program once done in water. - Subjective L TKA and R TKA revision over a year ago. Rehabbed at [facility]. Back hurts and knees hurt up and down steps. Doctor suggested aqua therapy for LB. LB stretches he is doing on his own. Describes pelvic tilt, leg stretches and bridging. Was working out in gym and was doing HSC, leg press, PKF, back extension, ab curls machine, glut ham. Bike 20-30 minutes low resistance. [place] great afterwards adn the next day could hurt in LB. Back pain is up to 3/10 central back pain and into hips. Intermittent but mostly there. Worse with lifting adn yard work. Sees chiropractic weekly and DTM monthly. No diagnostics. B knees hurt on steps or standing too long can get uncomfortable. Sleep is not interrupted. Activity at home pretty normal but slower. Basic ADLs are getting done. Hobbies: golf, has been out and it hurt a month ago but not last week. - Pain LBP Pain Intensity (Out of 10): 2 Pain Intensity Range: 0, 3 Knees Pain Intensity (Out of 10): 0 Pain Intensity Range: 0, 5 Comment: 5 on steps, needs to stretch - Objective [place] with wide ROSALIO slightly adn I with gait and transfers without UE. Steps are reciprocal without EU but stiff and weak in quads. LB AROM ext and flexion mod limited adn painful centrally. SB min limited adn no pain. Tender to palpation mildly in lumbar paraspinals. reflexes 2/3 patella and aachilles. Sensation wNL to gross light touch in LE. HS adn quads max tight B. AROM knees 0-120 R and 0-112 L. 4/5 quad strengtha dn 4+ HS. hip adn ankle aROM WFL, strength 4+ at ankles adn 4 hip abd and ext and 4+ flexion. - slump test, - SLR. - Goals Goal 1:: golf consistently withotu pain LB Goal Time Frame: 4-6 Weeks Goal 2:: I approp water HEP and back to gym ex without back pain. Goal Time Frame: 4-6 Weeks Goal 3:: LEFS 63/80 Goal Time Frame: 4-6 Weeks Goal 4:: Pt feel 75% better in back and knees overall Goal Time Frame: 4-6 Weeks - Rehabilitation Potential Physical Therapy Diagnosis: DDD, s/p TKA with some pain limiting progressions of mobility/ex. Rehabilitation Potential: Fair - Anticipated Interventions Patient/Client Instruction: Educate patient on: Condition, Plan of Care For the Purpose of:: To decrease pain, To increase ROM, To improve muscle performance and motor function Therapeutic Exercise to Include: Strength training, Flexibilty training, Gait and locomotor training, In an aquatic setting, Passive ROM, Active ROM For the Purpose of:: To decrease pain, To increase ROM, To improve muscle performance and motor function, To increase tolerance to activity/condition/position, To improve gait and locomotor functions Thank you for the opportunity to evaluate your patient. For Medicare and Medicare HMO plans, please review the plan of care and approve it. It will need to be FAXED BACK to us at [phone] for Medicare purposes. For Medicare only, by signing this I certify the plan of care. Please let me know if there are questions or concerns regarding this plan of care. Physician Signature: Date:
--- NOTE | 2020-12-12 16:51 | HP.PTREVAL_ITS ---
YAN GARCIA, It has been my pleasure to treat TRANG HENDRICKSON over the last 8 visits for DDD, s/p TKA. Please see the progress note below for an update on the physical therapy plan of care! Subjective: Feels like he is getting a little better but a edwin way to go. Still working on stretching back of hips. Knees feel better overall with less pain at 2-3/10 and less painful on steps 3/10. Sleep is OK. Activities on vacation were close to normal. Did some exercises in pool while on vacation. LBP improving. seeing chiropractor. Occasional ex at home. Ultimate goal is once per week in [employer] and once per week gym in summer adn 3x/week when it gets cooler. Does not know what to do in the pool on his own yet. Wants to start out in gym also though. Objective/Function: Walking well without obvious gait deivations, improving subjective withotu many limitations but still some pain after golf. AROM B knee WFL, back ROM WFL and without pain today. Tightness still present in piriformis and ITB and LB rotation. Appropriate to cotninue due to lack of ability knowledgably to do pool or start land I adn fair prognosis. Plan Plan: Continue 2x/week (one pool to wrok to I with leg strengtha dn stretching at [facility]) and 1x.land to teach gym program for LE and postural strength and core adn work to I in gym. Goals Goal 1:: golf consistently withotu pain LB Goal Time Frame: 4-6 Weeks Goal Progress: improving Goal 2:: I approp water HEP and back to gym ex without back pain. Goal Time Frame: 4-6 Weeks Goal Progress: Progressing Goal 3:: LEFS 63/80 Goal Time Frame: 4-6 Weeks Goal Progress: same Goal 4:: Pt feel 75% better in back and knees overall Goal Time Frame: 4-6 Weeks Goal Progress: Progressing Anticipated Interventions Patient/Client Instruction: Educate patient on: Condition, Plan of Care For the Purpose of:: To decrease pain, To increase ROM, To improve muscle perfo rmance and motor function Therapeutic Exercise to Include: Strength training, Flexibilty training, Gait and locomotor training, In an aquatic setting, Passive ROM, Active ROM For the Purpose of:: To decrease pain, To increase ROM, To improve muscle performance and motor function, To increase tolerance to activity/condition/position, To improve gait and locomotor functions Please do not hesitate to contact me at [phone] by phone or if you have questions or concerns regarding this new plan of care! Sincerely, Khanh Mcwilliams, DPT, OCS, CSCS
--- NOTE | 2021-01-17 16:13 | HP.PTDCSUM_ITS ---
It has been my pleasure to treat TRANG HENDRICKSON referred by YAN GARCIA, with the diagnosis of DDD, s/p TKA for a total of 16 visit(s). Discharge Date: 01/17/21 Please see the following information for a summary of their discharge status. Subjective: A lot better. Knees doesn't hurt on steps. Has been golfing 2- 3x/week. Regular stretches at home. Ready to be on own in gym as [employer] member. No f/u needed qwith doctor. Activities are pretty normal. No back soreness with mowing. LBP Pain Intensity (Out of 10): 0 Knees Pain Intensity (Out of 10): 0 % Improvement: 80 Objective/Function: Walks well, trasnfers and steps without UE today and no pain right now. Goals are met and he is significantly better. Ready to workout on his own. Goal 1:: golf consistently withotu pain LB Goal Progress: Goal Met Goal 2:: I approp water HEP and back to gym ex without back pain. Goal Progress: Goal Met Goal 3:: LEFS 63/80 Goal Progress: same Goal 4:: Pt feel 75% better in back and knees overall Goal Progress: Goal Met Plan: d/c Discharge Comments: Pt to [facility]ad [facility] in pool and gym If there are questions or concerns regarding this patient's physical therapy, please feel free to call me at [phone]. Thank you for the referral of this patient. Sincerely, Khanh Mcwilliams, DPT, OCS, CSCS Balance/Gait/Functional tests - Balance/Special Test Scores Lower Extremity Functional Score: 58
== END 2021-01-17 19:00 | disposition home or self-care (01) ==
LOC: PT 15:30
PROVIDERS: PCP Family Medicine
DX: M51.36 Other intervertebral disc degeneration, lumbar region (principal); Z96.653 Presence of artificial knee joint, bilateral
CPT/HCPCS: 97110; 97113; 97162; 97164